=== PATIENT | female | born 1990 | race Caucasian/White ===

== ENCOUNTER 2024-10-26 04:28 | Inpatient (IN) ==
[2024-10-26] MEDS ORDERED: IOPAMIDOL 100 ML BOTTLE IV ONE (04:29)
[2024-10-26] MEDS: 0.9 % SODIUM CHLORIDE 1,000 ML IV ONE (04:58)
[2024-10-26] MEDS: ONDANSETRON 4 MG/2 ML VIAL IV ONE (05:05)
[2024-10-26] MEDS: KETOROLAC 30 MG/ML VIAL IV ONE (05:05)
[2024-10-26 05:42] LABS: Basophils # (Auto) 0.01 K/mcL (0.00-0.30); Basophils % (Auto) 0.2 % (0.0-2.0); Eosinophils # (Auto) 0.01 K/mcL (0.00-0.70); Eosinophils % (Auto) 0.2 % (0.0-7.0); Hematocrit 38.5 % (34.1-44.9); Hemoglobin 12.4 g/dL (11.2-15.7); Lymphocytes # (Auto) 1.16 K/mcL (1.50-4.80); Lymphocytes % (Auto) 25.2 % (15.5-49.0); Mean Cell Volume 84.2 fL (80.0-100.0); Mean Corpuscular HGB Conc 32.2 g/dL (31.0-36.0); Mean Platelet Volume 11.6 fL (8.8-12.5); Monocytes # (Auto) 0.31 K/mcL (0.10-0.90); Monocytes % (Auto) 6.7 % (1.0-12.0); Platelet Count 196 K/mcL (140-440); RBC 4.57 M/mcL (3.59-5.38); Red Cell Distribution Width 13.7 % (11.5-14.5); WBC 4.6 K/mcL (4.5-11.0)
[2024-10-26 05:51] LABS: HCG,Serum Negative
[2024-10-26 06:02] LABS: ALT/SGPT 13 U/L (<40); AST/SGOT 18 U/L (<32); Albumin 3.9 gm/dL (3.2-5.2); Albumin/Globulin Ratio 1.2 (1.0-2.3); Alkaline Phosphatase 63 U/L (39-117); Bilirubin,Total 0.2 mg/dL (0.1-1.0); Blood Urea Nitrogen 8 mg/dL (6-20); Calcium 8.8 mg/dL (8.6-10.4); Carbon Dioxide 22 mmol/L (22-30); Chloride 102 mmol/L (96-108); Globulin 3.3 gm/dL (2.2-3.7); Glomerular Filtration Rate 120; Glucose 107 mg/dL (70-105); Potassium 3.6 mmol/L (3.3-5.1); Sodium 136 mmol/L (133-145)
[2024-10-26 06:28] LABS: Appearance,Urine Cloudy (Clear); Bacteria,Urine Many /hpf (0); Bilirubin,Urine Negative (Negative); Color,Urine Yellow; Glucose,Urine (UA) Negative (Negative); Ketones,Urine Negative (Negative); Leukocyte Esterase,Urine Moderate /uL (Negative); Nitrate,Urine Negative (Negative); PH,Urine 5.5 (5.0-9.0); Protein,Urine 30 mg/dL (Negative); Specific Gravity,Urine >= 1.030 (1.000-1.035); Urine Blood Moderate ery/mcL (Negative); Urine RBC 1 /hpf (0-3); Urine Squamous Epithelial Cell 3 /hpf (0-4); Urine WBC 2 /hpf (0-4); Urobilinogen,Urine Normal
[2024-10-26] MEDS: DEXAMETHASONE 10 MG/ML VIAL IV ONE (08:27)
[2024-10-26] MEDS: REMDESIVIR 200 MG in 0.9 % SODIUM CHLORIDE 250 ML IV ONE (09:35)
[2024-10-26] MEDS ORDERED: ZOLPIDEM 5 MG TABLET PO PRN (11:52)
[2024-10-26] MEDS ORDERED: MAGNESIUM HYDROXIDE 30 ML ORAL.SUSP PO PRN (11:52)
[2024-10-26] MEDS ORDERED: ALBUTEROL SULFATE 60 PUFF INHALER INH PRN (11:52)
[2024-10-26] MEDS ORDERED: SENNOSIDES 1 TABLET PO PRN (11:52)
[2024-10-26] MEDS: 0.9 % SODIUM CHLORIDE 10 ML SYRINGE IV SCH (17:23)
[2024-10-26] MEDS: IBUPROFEN 600 MG TABLET PO PRN (19:17)
[2024-10-27] MEDS: oxyCODONE IR 5 MG TABLET PO PRN (01:32)
[2024-10-27 06:24] LABS: Basophils # (Auto) 0.02 K/mcL (0.00-0.30); Basophils % (Auto) 0.6 % (0.0-2.0); Eosinophils # (Auto) 0 K/mcL (0.00-0.70); Eosinophils % (Auto) 0 % (0.0-7.0); Hematocrit 37.8 % (34.1-44.9); Hemoglobin 11.9 g/dL (11.2-15.7); Lymphocytes # (Auto) 0.98 K/mcL (1.50-4.80); Lymphocytes % (Auto) 29.1 % (15.5-49.0); Mean Cell Volume 86.9 fL (80.0-100.0); Mean Corpuscular HGB Conc 31.5 g/dL (31.0-36.0); Mean Platelet Volume 11.5 fL (8.8-12.5); Monocytes # (Auto) 0.29 K/mcL (0.10-0.90); Monocytes % (Auto) 8.6 % (1.0-12.0); Neutrophils % (Auto) 60.8 % (38.0-78.0); Platelet Count 186 K/mcL (140-440); RBC 4.35 M/mcL (3.59-5.38); Red Cell Distribution Width 13.5 % (11.5-14.5); WBC 3.4 K/mcL (4.5-11.0)
[2024-10-27 06:49] LABS: ALT/SGPT 15 U/L (<40); AST/SGOT 19 U/L (<32); Albumin/Globulin Ratio 1.2 (1.0-2.3); Alkaline Phosphatase 61 U/L (39-117); Bilirubin,Total < 0.2 mg/dL (0.1-1.0); Blood Urea Nitrogen 9 mg/dL (6-20); Calcium 8.7 mg/dL (8.6-10.4); Carbon Dioxide 25 mmol/L (22-30); Chloride 105 mmol/L (96-108); Globulin 3.3 gm/dL (2.2-3.7); Glomerular Filtration Rate 127; Glucose 120 mg/dL (70-105); Potassium 4.3 mmol/L (3.3-5.1); Sodium 140 mmol/L (133-145)
[2024-10-27 07:47] LABS: Hemoglobin A1C 5.9 % Hgb (4.0-6.0)
[2024-10-27] MEDS: LISINOPRIL 20 MG TABLET PO SCH (08:59)
[2024-10-27] MEDS: ENOXAPARIN 40 MG/0.4 ML SYRINGE SQ SCH (08:59)
[2024-10-27] MEDS: DEXAMETHASONE 10 MG/ML VIAL IV SCH (10:39)
[2024-10-27] MEDS: REMDESIVIR 100 MG in 0.9 % SODIUM CHLORIDE 250 ML IV SCH (10:40)
[2024-10-27] MEDS ORDERED: hydrALAZINE 20 MG/ML VIAL IV PRN (14:06)
[2024-10-27] MEDS ORDERED: BENZOCAINE/MENTHOL 1 LOZENGE PO PRN (16:25)
[2024-10-27] MEDS: CALCIUM CARBONATE 500 MG TAB.CHEW CHEWED PRN (19:24)
[2024-10-27] MEDS: MAG HYDROX/AL HYDROX/SIMETH 30 ML ORAL.SUSP PO PRN (20:06)
[2024-10-28 06:43] LABS: Basophils # (Auto) 0.02 K/mcL (0.00-0.30); Basophils % (Auto) 0.5 % (0.0-2.0); Eosinophils # (Auto) 0 K/mcL (0.00-0.70); Eosinophils % (Auto) 0 % (0.0-7.0); Hematocrit 37.2 % (34.1-44.9); Hemoglobin 11.8 g/dL (11.2-15.7); Lymphocytes # (Auto) 1.27 K/mcL (1.50-4.80); Lymphocytes % (Auto) 33.3 % (15.5-49.0); Mean Cell Volume 85.9 fL (80.0-100.0); Mean Corpuscular HGB Conc 31.7 g/dL (31.0-36.0); Mean Platelet Volume 11.8 fL (8.8-12.5); Monocytes % (Auto) 7.9 % (1.0-12.0); Platelet Count 177 K/mcL (140-440); RBC 4.33 M/mcL (3.59-5.38); Red Cell Distribution Width 13.7 % (11.5-14.5); WBC 3.8 K/mcL (4.5-11.0)
[2024-10-28 06:57] LABS: ALT/SGPT 12 U/L (<40); AST/SGOT 18 U/L (<32); Albumin 3.7 gm/dL (3.2-5.2); Albumin/Globulin Ratio 1.2 (1.0-2.3); Alkaline Phosphatase 55 U/L (39-117); Bilirubin,Total < 0.2 mg/dL (0.1-1.0); Blood Urea Nitrogen 14 mg/dL (6-20); Calcium 9.1 mg/dL (8.6-10.4); Carbon Dioxide 23 mmol/L (22-30); Chloride 105 mmol/L (96-108); Globulin 3.2 gm/dL (2.2-3.7); Glomerular Filtration Rate 127; Glucose 97 mg/dL (70-105); Potassium 4.1 mmol/L (3.3-5.1); Sodium 139 mmol/L (133-145)
[2024-10-28] MEDS: ACETAMINOPHEN 325 MG TABLET PO PRN (14:04)
[2024-10-28] MEDS: LORazepam 1 MG TABLET PO PRN (14:04)
[2024-10-28] MEDS: ONDANSETRON 4 MG/2 ML VIAL IV PRN (14:42)
[2024-10-29 06:32] LABS: ALT/SGPT 16 U/L (<40); AST/SGOT 19 U/L (<32); Albumin 3.8 gm/dL (3.2-5.2); Albumin/Globulin Ratio 1.2 (1.0-2.3); Alkaline Phosphatase 57 U/L (39-117); Bilirubin,Total < 0.2 mg/dL (0.1-1.0); Blood Urea Nitrogen 11 mg/dL (6-20); Calcium 8.8 mg/dL (8.6-10.4); Carbon Dioxide 25 mmol/L (22-30); Chloride 103 mmol/L (96-108); Globulin 3.3 gm/dL (2.2-3.7); Glomerular Filtration Rate 127; Glucose 103 mg/dL (70-105); Sodium 139 mmol/L (133-145)
[2024-10-29 07:06] LABS: Basophils # (Auto) 0 K/mcL (0.00-0.30); Basophils % (Auto) 0 % (0.0-2.0); Eosinophils # (Auto) 0 K/mcL (0.00-0.70); Eosinophils % (Auto) 0 % (0.0-7.0); Hematocrit 38.1 % (34.1-44.9); Hemoglobin 12.2 g/dL (11.2-15.7); Lymphocytes # (Auto) 1.22 K/mcL (1.50-4.80); Lymphocytes % (Auto) 34.4 % (15.5-49.0); Mean Cell Volume 83.9 fL (80.0-100.0); Mean Platelet Volume 11.8 fL (8.8-12.5); Monocytes # (Auto) 0.28 K/mcL (0.10-0.90); Monocytes % (Auto) 7.9 % (1.0-12.0); Platelet Count 179 K/mcL (140-440); RBC 4.54 M/mcL (3.59-5.38); Red Cell Distribution Width 13.4 % (11.5-14.5); WBC 3.6 K/mcL (4.5-11.0)
[2024-10-29 11:48] VITALS: TEMP 97.4; O2SAT 94
== END 2024-10-29 12:55 | disposition home or self-care (01) | DRG 177 ==
LOC: ED 04:28 → MEDSUR 11:12
PROVIDERS: ADMIT Internal Medicine; ATTEND Internal Medicine